=== PATIENT | male | born 1990 | race African-American/Black ===

== ENCOUNTER 2018-12-24 21:44 | Emergency (ER) | payer OTHER ==
[2018-12-24 21:48] VITALS: BP 117/74; PULSE 78; TEMP 97.8; BMI 25.0
[2018-12-24] MEDS ORDERED: ACETAMINOPHEN 500 MG TABLET (FP) PO ONE (22:34)
--- NOTE | 2018-12-24 22:34 | PDOC ---
History of Present Illness - General Chief Complaint: Bone Injury Stated Complaint: RIGHT FOOT INJURY Time Seen by Provider: 12/24/18 21:52 - History of Present Illness Initial Comments: 12/24/18 22:44 The patient is a 28 year old male with no significant PMH who presents for evaluation of right foot pain. The patient reports that he was at a trampoline park and "landed wrong" on his right foot hyper dorsiflexing the foot with pain prompting his presentation to the ED for further evaluation. He notes that he has been unable to ambulate on the foot since the injury. He otherwise denies head trauma, headache, fevers, chills, SOB, chest pain, nausea, vomiting, numbness, tingling, weakness, or other injuries. Past History - Past Medical History Allergies/Adverse Reactions: Allergies Allergy/AdvReac Type Severity Reaction Status Date / Time No Known Allergies Allergy Verified 12/24/18 21:48 COPD: No - Suicide/Smoking/Psychosocial Hx Smoking History: Never smoked Review of Systems - Review of Systems Comments:: 12/24/18 22:46 Constitutional: No fevers, chills, fatigue, malaise HEENT: No Rhinorrhea, nasal congestion, visual changes Cardiovascular: No chest pain, syncope, palpitations, lightheadedness Respiratory: No Cough, SOB, Hemoptysis, Gastrointestinal: No Abdominal pain, Nausea, Vomiting, Constipation, Diarrhea, Melena Genitourinary: No Dysuria, Frequency, Urgency, Hesitancy, Hematuria, Flank pain Musculoskeletal: Right foot pain. No Myalgia, arthralgia Skin: No rashes, itching, bruising, pallor Neurologic: No Headache, Dizziness, Numbness, Weakness, or Tingling Psychiatric: No Hallucinations. No SI or HI *Physical Exam - Vital Signs Last Vital Signs Temp Pulse Resp BP Pulse Ox 97.8 F 78 18 117/74 98 12/24/18 21:47 12/24/18 21:47 12/24/18 21:47 12/24/18 21:47 12/24/18 21:47 - Physical Exam Comments: 12/24/18 22:47 General Appearance: Nourished. No Apparent Distress HEENT: No Pharyngeal Erythema, Tonsillar Exudate, Tonsillar Erythema Neck: No Cervical Lymphadenopathy Respiratory/Chest: Lungs Clear, Normal Breath Sounds. No Crackles, Rales, Rhonchi, Wheezing Cardiovascular: Regular Rhythm, Regular Rate. No Murmur, Gallops, Rubs Gastrointestinal/Abdominal: Normal Bowel Sounds, Soft. No Guarding, Rebound, Tenderness Musculoskeletal: No CVA Tenderness Extremity: Edema and swelling noted to the right mid-foot extending to the lateral and medial aspects of the foot. No tenderness to palpation to the lateral and medial ankle. Tenderness to palpation of the mid-foot. 2+ DP pulses. Sensation to light touch and temperature intact distally bilaterally. Normal Capillary Refill Integumentary: Normal Color, Dry, Warm Neurologic: Fully Oriented, Alert, Normal Mood/Affect, Normal Response, ED Treatment Course - RADIOLOGY Radiology Studies Ordered: Category Date Time Status ANKLE & FOOT-RIGHT* [RAD] Stat Radiology 12/24/18 22:00 Ordered Medical Decision Making - Medical Decision Making 12/24/18 22:48 The patient is a 28 year old male with no significant PMH who presents for evaluation of right foot pain. Differential includes but is not limited to: Fracture, Dislocation, LisFranc, Ligamentous Injury. Given the patient's history and physical exam, we will obtain plain films to evaluate further. We will treat with tylenol and continue to monitor and reassess while here in the ED. 12/25/18 00:34 Plain films demonstrate a possible mid-foot avulsion fracture as preliminarily read by our bus driver/monitor radiologist. We have placed the patient in a hard sole shoe and have made him non-weight bearing. We have provided the patient with crutches. We are comfortable discharging the patient home in stable condition with Podietry follow up. Patient and family made aware of impression and plan, return precautions discussed including but not limited to worsening pain or symptoms, fevers, or signs of infection, chest pain, respiratory distress, inability to tolerate oral intake, dehydration, syncope, or neurologic changes. The patient is to follow up with specialist as recommended within 1 week, follow up information provided and the patient will call for an appointment. The patient is to take medications as instructed for duration of time and continue with supportive care, avoid triggers and precipitants. Patient is safe for outpatient follow-up. *DC/Admit/Observation/Transfer Diagnosis at time of Disposition: Right foot pain - Discharge Dispostion Disposition: HOME Condition at time of disposition: Stable Decision to Admit order: No - Referrals Referrals: Chris Bean DPM [Staff Physician] - - Patient Instructions Printed Discharge Instructions: How to Use Crutches, DI for Foot Pain Additional Instructions: 1) Please follow-up with your primary care doctor in the next 2-3 days. Please call tomorrow to schedule a follow up appointment. If you cannot follow up with your doctor within 1 week please return to the Emergency Department for any urgent issues. 2) You are to follow up with our podietrist within 2-3 days to discuss your ER visit and further management of your symptoms. You may use tylenol and ibuprofen at home to help manage your pain as needed. 3) If you have any worsening of symptoms or any other concerns please return to the ER immediately. Return if worsening symptoms including fevers, headache, vomiting, visual or hearing disturbances, abdominal pain, chest pain, shortness of breath, syncope, dehydration, inability to take things by mouth/vomiting, altered mental status, or worsening concerning symptoms. - Post Discharge Activity Forms/Work/School Notes: Back to Work
[2018-12-24] MEDS ORDERED: ACETAMINOPHEN 325 MG TABLET (FP) ONE (22:44)
--- NOTE | 2018-12-24 22:46 | PDOC ---
Documentation entered by Skyler Daigle SCRIBE, acting as scribe for Shreya Campa MD. Shreya Campa MD: This documentation has been prepared by the leleibe, Skyler Daigle SCRIBE, under my direction and personally reviewed by me in its entirety. I confirm that the documentation accurately reflects all work, treatment, procedures, and medical decision making performed by me. Attending Attestation - Resident Resident Name: MarlynColin - ED Attending Attestation I have performed the following: I have examined & evaluated the patient, The case was reviewed & discussed with the resident, I agree w/resident's findings & plan, Exceptions are as noted - HPI HPI: 12/24/18 22:34 The patient is a 28 year old male with no significant past medical history who presents to the emergency department with a right foot pain s/p an injury earlier today. The patient states that he was at an indoor trampoline facility with his kids jumping on a trampoline when he came down and dorsiflexed his right foot. The patient states that he has been unable to bear weight on his right foot secondary to pain. He denies any numbness, weakness or tingling sensation. He denies any headache, dizziness, head injury. The patient denies any other symptoms or complaints. - Physicial Exam PE: GENERAL: Awake, alert, and fully oriented, in no acute distress HEAD: No signs of trauma EYES: PERRLA, EOMI, sclera anicteric, conjunctiva clear EXTREMITIES: +Swelling to R mid-foot with tenderness over bases of 2nd through 5th metatarsals. No crepitus. Remainder of extremities with normal range of motion, no edema. No clubbing or cyanosis. No cords, erythema, or tenderness NEUROLOGICAL: Cranial nerves II through XII grossly intact. Normal speech, normal gait. Motor and sensation intact SKIN: Warm, Dry, normal turgor, no rashes or lesions noted. - Medical Decision Making Pt with mid-foot tenderness and swellinf following an injury at an indoor trampoline park. Will obtain XR to r/o lisfranc fx.
== END 2018-12-25 00:44 | disposition home or self-care (01) ==
LOC: JER 21:44
DX: S99.811A Other specified injuries of right ankle, initial encounter (principal); X50.9XXA Other and unspecified overexertion or strenuous movements or postures, initial encounter; Y93.44 Activity, trampolining; Y92.838 Other recreation area as the place of occurrence of the external cause; Y99.8 Other external cause status
CPT/HCPCS: 73610-TC-RT-FY; 73630-TC-RT-FY; 99282-25